=== PATIENT | male | born 1960 | race American Indian/Alaskan Native ===

== ENCOUNTER 2019-11-17 13:19 | Outpatient (CLI) | payer OTHER ==
--- NOTE | 2019-11-17 16:37 | Ultrasound Report ---
BILATERAL DIGITAL DIAGNOSTIC MAMMOGRAM WITH CAD 11/17/2019 LEFT LIMITED BREAST ULTRASOUND INDICATION: Palpable painful left breast mass. Patient has history of throat cancer as well as cardio vascular disease. TECHNIQUE: Digital bilateral mammographic imaging was performed. Limited ultrasound was performed. T his examination was interpreted with the benefit of Computer-Aided Detection (CAD) analysis. COMPARISON: None. This is a male patient FINDINGS: Breast Density: The breasts are almost entirely fatty. MAMMOGRAPHIC FINDINGS: There is no evidence of dominant mass, suspicious calcifications or architectu ral distortion in the right breast. There is a 3.5 cm focal asymmetry in the left subareolar breast. The appearance is most consistent with gynecomastia. There is very minimal duct mass tear in the righ t subareolar breast. No additional finding is noted in either breast. ULTRASOUND FINDINGS: Targeted ultrasound evaluation was performed of the area of interest. No evide nce of solid mass, cyst, or suspicious shadowing. The focal asymmetry seen on recent mammogram is con sistent with benign gynecomastia IMPRESSION:. Bilateral gynecomastia, much more prominent in the left breast. This would account for t he patient's complaint of a palpable painful area in the left breast. Follow up recommendation: Clinical correlation is recommended to determine etiology of gynecomastia. Given the patient's multiple comorbidities, I suspect gynecomastia may be related to medication. BI-RADS Category 2: Benign. A "normal" or negative report should not discourage follow up or biopsy of a clinically significant f inding. A written summary of these findings will be mailed to the patient. The patient will be entered into a mammography reporting system which will generate a reminder letter for the patient's next appointmen t at the appropriate interval. According to the [employer], yearly mammograms are recommended starting at age 40 and continuing as long as a woman is in good health. Breast MRI is recommended for women with an anastacia roximately 20-25% or greater lifetime risk of breast cancer, including women with a strong family his tory of breast or ovarian cancer and women who have been treated for Hodgkin's disease. Signer Name: Mitzi Oneill MD Signed: 11/17/2019 4:32 PM Workstation Name: [id number]
== END 2019-11-17 13:20 | disposition home or self-care (01) ==
LOC: MAMMO 13:19
PROVIDERS: ATTEND Internal Medicine Infectious Disease
DX: N62 Hypertrophy of breast (principal); N63.0 Unspecified lump in unspecified breast
CPT/HCPCS: 77066

== ENCOUNTER 2021-01-21 17:28 | Emergency (ER) | payer OTHER ==
--- NOTE | 2021-01-21 20:32 | Emergency Department Report ---
ED ENT HPI - General Chief complaint: Sore Throat Stated complaint: COVID SYMPTOMS Time Seen by Provider: 01/21/21 20:11 Source: patient Mode of arrival: Ambulatory Limitations: No Limitations - History of Present Illness Initial comments: 60-year-old -[place] male presents to the emergency room reporting that he has had a fever and sore throat. Patient states that his temperature was 99.2. Patient denies any chest pain shortness of breath no nausea no vomiting no diarrhea or abdominal pain. Patient reports he is vaccinated but has not do ne a Covid test and is scheduled on Sunday. Patient states he has body aches. Patient is immune compromised. Has not taken anything for his pain or discomfort. MD complaint: sore throat -: This morning Location: throat Severity scale (0 -10): 3 Quality: sharp Improves with: none Worsens with: swallowing - Related Data Allergies Allergy/AdvReac Type Severity Reaction Status Date / Time No Known Allergies Allergy Unverified 01/21/21 18:44 ED Dental HPI - General Chief complaint: Sore Throat Stated complaint: COVID SYMPTOMS Time Seen by Provider: 01/21/21 20:11 Source: patient Mode of arrival: Ambulatory Limitations: No Limitations - Related Data Allergies Allergy/AdvReac Type Severity Reaction Status Date / Time No Known Allergies Allergy Unverified 01/21/21 18:44 ED Review of Systems ROS: Stated complaint: COVID SYMPTOMS Other details as noted in HPI Comment: All other systems reviewed and negative ED Past Medical Hx - Past Medical History Previous Medical History?: Yes Additional medical history: POCD; HIV undetectable ED Physical Exam - General Limitations: No Limitations General appearance: alert, in no apparent distress - Head Head exam: Present: atraumatic, normocephalic - Eye Eye exam: Present: normal appearance - ENT ENT exam: Present: normal orophraynx, mucous membranes moist, TM's normal bilaterally, normal external ear exam - Neck Neck exam: Present: tenderness, full ROM, lymphadenopathy (Right anterior chain) - Respiratory Respiratory exam: Present: normal lung sounds bilaterally. Absent: respiratory distress - Cardiovascular Cardiovascular Exam: Present: regular rate, normal rhythm. Absent: systolic murmur, diastolic murmur, rubs, gallop - GI/Abdominal GI/Abdominal exam: Present: soft, normal bowel sounds - Rectal Rectal exam: Present: deferred - Extremities Exam Extremities exam: Present: normal inspection - Back Exam Back exam: Present: normal inspection - Neurological Exam Neurological exam: Present: alert, oriented X3 - Psychiatric Psychiatric exam: Present: normal affect, normal mood - Skin Skin exam: Present: warm, dry, intact, normal color. Absent: rash ED Course Vital Signs 01/21/21 18:45 Temperature 98.8 F Pulse Rate 87 Respiratory 18 Rate Blood Pressure 152/109 O2 Sat by Pulse 96 Oximetry ED Medical Decision Making - Medical Decision Making 60-year-old -[place] male presents to the emergency room reporting that he has had a fever and sore throat. Patient states that his temperature was 99.2. Patient denies any chest pain shortness of breath no nausea no vomiting no diarrhea or abdominal pain. Patient reports he is vaccinated but has not done a Covid test and is scheduled on Sunday. Patient states he has body aches. Patient is immune compromised. Has not taken anything for his pain or discomfort. Patient will be discharged home recommend Tylenol for pain. Follow-up with his primary care provider keep his appointment for Covid testing. Critical care attestation.: If time is entered above; I have spent that time in minutes in the direct care of this critically ill patient, excluding procedure time. ED Disposition Clinical Impression: Sore throat (viral) Disposition: DC-01 TO HOME OR SELFCARE Is pt being admited?: No Does the pt Need Aspirin: No Condition: Stable Instructions: Viral Respiratory Infection, [id number] Additional Instructions: Your symptoms appear most consistent with a nonspecific viral syndrome. However, given this current pandemic, COVID-19 is in the differential of possibilities. I do recommend outpatient Covid 19 testing. In the meantime, isolate/quarantine yourself and stay away from anyone who is elderly, immunocompromised or chronically ill. You can use ibuprofen every 6-8 hours and Tylenol every 4-8 hours, using the dosing on the back of the bottle, as needed for any fever or body aches. Return to the emergency department with any worsening of your symptoms, development of chest pain or shortness of breath, or with any acute distress. Referrals: [facility] [Provider Group] - 3-5 Days Time of Disposition: 20:39
[2021-01-21 21:01] VITALS: BP 138/93
== END 2021-01-21 20:45 | disposition home or self-care (01) ==
LOC: ED 17:28
DX: J02.8 Acute pharyngitis due to other specified organisms (principal); Z20.822 Contact with and (suspected) exposure to COVID-19
CPT/HCPCS: 99281